=== PATIENT | male | born 1975 | race Caucasian/White ===

== ENCOUNTER 2017-02-24 11:18 | Emergency (ER) | payer MEDICAID ==
[~2017-02-24] VITALS: Ht 175.3 cm; Wt 99.8 kg
[~2017-02-24 11:18] MED LIST: METO25TA5 PO; NAP500T PO
[2017-02-24 11:35] VITALS: BP 106/72
[2017-02-24] MEDS ORDERED: PANTOPRAZOLE SODIUM 40 MG/10 ML VIAL IV STA (11:37)
[2017-02-24] MEDS ORDERED: SODIUM CHLORIDE 0.9% 1,000 ML IVB ONE (11:37)
[2017-02-24] MEDS ORDERED: MORPHINE SULFATE 4 MG/ML SYRG IV ONE (11:45)
[2017-02-24] MEDS ORDERED: ONDANSETRON HCL 4 MG/2 ML VIAL IV ONE (11:45)
[2017-02-24 12:33] LABS: Basophils # (auto) 0 uL; Basophils % (auto) 0.4 % (0.0-2.0); Eosinophils # (auto) 0.3 uL; Hematocrit 47.4 % (41.0-53.0); Hemoglobin 16.1 g/dL (13.5-17.5); Lymphocytes # (auto) 1.8 uL; Lymphocytes % (auto) 24.2 % (10.0-50.0); Mean Corpuscular Hemoglobin 30.4 pg (28.0-32.0); Mean Corpuscular Hgb Conc. 33.9 g/dL (32.0-36.0); Mean Corpuscular Volume 89.7 fL (80.0-100.0); Mean Platelet Volume 9.2 fL (7.4-10.4); Monocytes # (auto) 0.4 uL; Monocytes % (auto) 5.8 % (0.0-12.0); Neutrophils # (auto) 4.9 uL; Neutrophils % (auto) 65.6 % (37.0-80.0); Platelet Count (auto) 290 10^3/uL (140-450); Red Cell Distribution Width 13.2 % (11.6-16.0); White Blood Cell 7.5 10^3/uL (4.4-10.8)
[2017-02-24 12:48] LABS: Calcium 8.6 mg/dL (8.5-10.1); Potassium 4.4 mmol/L (3.5-5.1)
[2017-02-24 12:51] LABS: BUN/Creatinine Ratio 13.5
[2017-02-24 12:53] LABS: Bilirubin, Total 0.8 mg/dL (0.2-1.0); Total Protein 7.6 g/dL (6.4-8.2)
[2017-02-24] MEDS ORDERED: HYDROcodone-ACET 10/325MG TAB PO ONE (13:30)
== END 2017-02-24 13:25 | disposition home or self-care (01) ==
LOC: ER 11:18
DX: K29.00 Acute gastritis without bleeding (principal); I10 Essential (primary) hypertension; F17.210 Nicotine dependence, cigarettes, uncomplicated; F12.10 Cannabis abuse, uncomplicated; Z88.6 Allergy status to analgesic agent
CPT/HCPCS: 36415; 74176; 80053; 83690; 85025; 94761; 96361; 96374; 96375; 99285; C9113; J2270; J2405; J7030

== ENCOUNTER 2017-06-21 05:38 | Emergency (ER) | payer MEDICAID, OTHER ==
[~2017-06-21] VITALS: Ht 180.3 cm; Wt 95.3 kg
[2017-06-21 07:50] VITALS: BP 147/96
[2017-06-21] MEDS ORDERED: KETOROLAC TROMETH 60MG/2ML VIAL IM ONE (08:15)
== END 2017-06-21 08:38 | disposition home or self-care (01) ==
LOC: ER 05:46
DX: S83.91XA Sprain of unspecified site of right knee, initial encounter (principal); I10 Essential (primary) hypertension; F17.210 Nicotine dependence, cigarettes, uncomplicated; Z88.6 Allergy status to analgesic agent; X50.1XXA Overexertion from prolonged static or awkward postures, initial encounter; Y93.89 Activity, other specified; Y99.8 Other external cause status; Y92.69 Other specified industrial and construction area as the place of occurrence of the external cause
CPT/HCPCS: 29505; 73552; 73562; 73590; 73630; 96372; 99284; J1885

== ENCOUNTER 2017-07-30 14:10 | Emergency (ER) | payer OTHER ==
[~2017-07-30] VITALS: Ht 180.3 cm; Wt 99.8 kg
[2017-07-30 14:55] VITALS: BP 123/83
[2017-07-30] MEDS ORDERED: KETOROLAC TROMETH 60MG/2ML VIAL IM ONE (15:30)
== END 2017-07-30 16:23 | disposition home or self-care (01) ==
LOC: ER 14:10
DX: S80.01XA Contusion of right knee, initial encounter (principal); I10 Essential (primary) hypertension; F17.210 Nicotine dependence, cigarettes, uncomplicated; Z88.6 Allergy status to analgesic agent; Z79.899 Other long term (current) drug therapy; Z90.49 Acquired absence of other specified parts of digestive tract; W22.8XXA Striking against or struck by other objects, initial encounter; Y93.E1 Activity, personal bathing and showering; Y92.89 Other specified places as the place of occurrence of the external cause; Y99.8 Other external cause status
CPT/HCPCS: 73564; 96372; 99284; J1885

== ENCOUNTER 2017-09-07 12:09 | Emergency (ER) | payer OTHER ==
[~2017-09-07] VITALS: Ht 180.3 cm; Wt 99.3 kg
[2017-09-07 13:34] VITALS: BP 150/89
[2017-09-07] MEDS ORDERED: KETOROLAC TROMETH 60MG/2ML VIAL IM ONE (14:00)
== END 2017-09-07 14:52 | disposition home or self-care (01) ==
LOC: ER 12:18
DX: G89.29 Other chronic pain (principal); M54.5 Low back pain; I10 Essential (primary) hypertension; F17.210 Nicotine dependence, cigarettes, uncomplicated; Z76.0 Encounter for issue of repeat prescription
CPT/HCPCS: 96372; 99283; J1885

== ENCOUNTER 2018-04-14 10:33 | Emergency (ER) | payer SELFPAY ==
[~2018-04-14] VITALS: Ht 175.3 cm; Wt 90.7 kg
[2018-04-14 11:25] LABS: Basophils # (auto) 0.1 uL; Lymphocytes # (auto) 2.4 uL; Monocytes # (auto) 0.5 uL; Nucleated Red Blood Cells % 0.1 %
[2018-04-14 11:27] LABS: Basophils % (auto) 1.2 % (0.0-2.0); Eosinophils # (auto) 0.3 uL; Eosinophils % (auto) 3.2 % (0.0-7.0); Hematocrit 49.9 % (41.0-53.0); Hemoglobin 17.7 g/dL (13.5-17.5); Mean Corpuscular Hemoglobin 32.3 pg (28.0-32.0); Mean Corpuscular Hgb Conc. 35.4 g/dL (32.0-36.0); Mean Corpuscular Volume 91.3 fL (80.0-100.0); Monocytes % (auto) 5.1 % (0.0-12.0); Neutrophils % (auto) 64.5 % (37.0-80.0); Platelet Count (auto) 259 10^3/uL (140-450); Red Blood Cells 5.47 10^6/uL (4.5-5.90); White Blood Cell 9.3 10^3/uL (4.4-10.8)
[2018-04-14 11:33] LABS: Urine Bacteria NONE SEEN /hpf (None Seen); Urine Blood Negative /uL (Negative); Urine Mucus FEW (None Seen); Urine Specific Gravity 1.013 (1.001-1.035); Urine WBC <1 /hpf (0 - 3)
[2018-04-14 11:48] LABS: Alcohol, Urine < 3.0 mg/dL (0-5); Amphetamine Screen, Urine NEGATIVE (NEGATIVE); Barbiturate Scree,Urine NEGATIVE (NEGATIVE); Benzodiazephine Screen, Urine NEGATIVE (NEGATIVE); Cannabinoid Screen, Urine POSITIVE (NEGATIVE); Cocaine Screen, Urine NEGATIVE (NEGATIVE); Opiate Scree,Urine NEGATIVE (NEGATIVE); Phencyclidine Screen, Urine NEGATIVE (NEGATIVE)
[2018-04-14 11:51] LABS: Albumin 4.3 g/dL (3.4-5.0); BUN/Creatinine Ratio 9.8; Bilirubin, Total 0.9 mg/dL (0.2-1.0); Calcium 8.7 mg/dL (8.5-10.1); Total Protein 8.3 g/dL (6.4-8.2)
[2018-04-14] MEDS ORDERED: LORazepam 0.5 MG TAB PO ONE (12:30)
[2018-04-14 16:00] VITALS: BP 140/82
[2018-04-14] MEDS ORDERED: HYDROcodone-ACET 10/325MG TAB PO ONE (16:15)
== END 2018-04-14 16:21 | disposition home or self-care (01) ==
LOC: ER 10:33
DX: E86.0 Dehydration (principal); F41.9 Anxiety disorder, unspecified; F17.210 Nicotine dependence, cigarettes, uncomplicated; F12.10 Cannabis abuse, uncomplicated; I10 Essential (primary) hypertension; I25.2 Old myocardial infarction; Z90.89 Acquired absence of other organs; Z88.6 Allergy status to analgesic agent
CPT/HCPCS: 36415; 70450; 80053; 80307; 81001; 85025; 93005

== ENCOUNTER 2020-10-25 09:39 | Emergency (ER) | payer MEDICAID, OTHER ==
[2020-10-25] MEDS ORDERED: SODIUM CHLORIDE 0.9% 1,000 ML IV ONE (10:00)
[2020-10-25] MEDS ORDERED: IOHEXOL 350 MG/ML 100ML IJ ONE (10:01)
[2020-10-25 10:20] LABS: Hemoglobin 10.8 g/dL (13.5-17.5); Lymphocytes # (auto) 1.3 10 ^3/uL (0.4-5.4); Monocytes # (auto) 0.4 10 ^3/uL (0-1.3); Monocytes % (auto) 4.7 % (0.0-12.0); Nucleated Red Blood Cells % 0.1 %
[2020-10-25 10:22] LABS: Basophils # (auto) 0 10 ^3/uL (0-0.2); Basophils % (auto) 0.5 % (0.0-2.0); Eosinophils # (auto) 0.2 10 ^3/uL (0-0.8); Eosinophils % (auto) 2.6 % (0.0-7.0); Hematocrit 31.6 % (41.0-53.0); Lymphocytes % (auto) 15.4 % (10.0-50.0); Mean Corpuscular Hgb Conc. 34.1 g/dL (32.0-36.0); Mean Corpuscular Volume 93.8 fL (80.0-100.0); Neutrophils # (auto) 6.5 10 ^3/uL (1.6-8.6); Neutrophils % (auto) 76.8 % (37.0-80.0); Red Blood Cells 3.36 10^6/uL (4.5-5.90); Red Cell Distribution Width 14.4 % (11.8-14.3); White Blood Cell 8.5 10^3/uL (4.4-10.8)
[2020-10-25 10:39] LABS: Albumin 3.5 g/dL (3.4-5.0); Anion Gap 9 (5-15); Blood Urea Nitrogen 12 mg/dL (7-18); Calcium 8.6 mg/dL (8.5-10.1); Carbon Dioxide 24 mmol/L (21-32); Chloride 105 mmol/L (98-107); Glucose 115 mg/dL (74-106); Potassium 3.8 mmol/L (3.5-5.1); Sodium 138 mmol/L (136-145)
[2020-10-25 10:45] LABS: Alanine Aminotransferase 69 U/L (16-61); Alkaline Phosphatase 137 U/L (45-117); Aspartate Aminotransferase 75 U/L (15-37); BUN/Creatinine Ratio 16.2; Bilirubin, Total 2.1 mg/dL (0.2-1.0); GFR African American 146 mL/min; GFR Non-African American 120 mL/min; Total Protein 7.8 g/dL (6.4-8.2)
[2020-10-25] MEDS ORDERED: traMADol HCL 50 MG TAB PO ONE (11:45)
[2020-10-25 12:58] VITALS: BP 117/55
== END 2020-10-25 13:46 | disposition home or self-care (01) ==
LOC: ER 09:39
DX: R55 Syncope and collapse (principal); F17.210 Nicotine dependence, cigarettes, uncomplicated; I10 Essential (primary) hypertension; Z79.899 Other long term (current) drug therapy; Z88.5 Allergy status to narcotic agent; Z90.49 Acquired absence of other specified parts of digestive tract
CPT/HCPCS: 36415; 70450; 71275; 73502; 80053; 84484; 85025; 93005; 93970; 96360; 99285; Q9967

== ENCOUNTER 2024-02-26 06:52 | Inpatient (IN) | payer MEDICAID ==
[2024-02-24 12:49] LABS: Urine Bacteria None Seen /hpf (None Seen)
[2024-02-24 13:11] LABS: Basophils # (auto) 0.1 10 ^3/uL (0-0.2); Eosinophils # (auto) 0.3 10 ^3/uL (0-0.8); Eosinophils % (auto) 3.5 % (0.0-7.0); Hematocrit 50.3 % (41.0-53.0); Hemoglobin 17.6 g/dL (13.5-17.5); Lymphocytes # (auto) 2.1 10 ^3/uL (0.4-5.4); Lymphocytes % (auto) 25.5 % (10.0-50.0); Mean Corpuscular Hemoglobin 32.2 pg (28.0-32.0); Mean Corpuscular Hgb Conc. 34.9 g/dL (32.0-36.0); Mean Corpuscular Volume 92.1 fL (80.0-100.0); Monocytes # (auto) 0.4 10 ^3/uL (0-1.3); Monocytes % (auto) 5.2 % (0.0-12.0); Neutrophils # (auto) 5.3 10 ^3/uL (1.6-8.6); Neutrophils % (auto) 64.8 % (37.0-80.0); Nucleated Red Blood Cells % 0.2 %; Red Blood Cells 5.46 10^6/uL (4.5-5.90); White Blood Cell 8.1 10^3/uL (4.4-10.8)
[2024-02-24 13:17] LABS: INR 1.01 (0.9-1.15); Partial Thromboplastin Time 29.2 SEC (24.5-34.5); Prothrombin Time 10.7 sec (9.3-11.8)
[2024-02-24 13:29] LABS: Urine Blood Negative /uL (Negative); Urine Clarity Clear (Clear); Urine Color Yellow (Yellow); Urine Mucus FEW (None Seen); Urine Protein, UAD TRACE (Negative); Urine Specific Gravity 1.024 (1.001-1.035); Urine Urobilinogen Normal (Negative); Urine WBC 2 /hpf (0 - 3); Urine pH 5.5 (5.0-9.0)
[2024-02-24 14:02] LABS: Alanine Aminotransferase 60 U/L (7-40); Albumin 4.8 g/dL (3.2-4.8); Alkaline Phosphatase 61 U/L (46-116); Anion Gap 9 (5-15); Aspartate Aminotransferase 50 U/L (13-40); BUN/Creatinine Ratio 15.6 (10.0-20.0); Bilirubin, Total 0.8 mg/dL (0.2-1.0); Blood Urea Nitrogen 7 mg/dL (9-23); Carbon Dioxide 26 mmol/L (20-30); Chloride 105 mmol/L (98-107); Glucose 128 mg/dL (74-106); Potassium 3.6 mmol/L (3.5-5.1); Sodium 140 mmol/L (136-145); Total Protein 7.3 g/dL (5.7-8.2)
[~2024-02-26] VITALS: Ht 180.3 cm; Wt 89.5 kg
[2024-02-26] VITALS (8 sets, daily range): BP systolic 118–141; BP diastolic 82–94; PULSE 73–81; RESP 14–20; TEMP 97.8; O2SAT 95–99
[2024-02-26] MEDS: ceFAZolin 2 GM/D5W50ml 50 ML IV ONE (07:43)
[2024-02-26] MEDS ORDERED: ROCURONIUM 10MG/ML 10ML VIAL IV ONE (08:04)
[2024-02-26] MEDS ORDERED: SODIUM CHLORIDE LOCK 10 ML ONE (08:04)
[2024-02-26] MEDS ORDERED: MIDAZOLAM HCL 2MG/2ML 2ml VIAL (1mg/ml) ONE (08:04)
[2024-02-26] MEDS ORDERED: DexAMETHasone SOD PHOS 10MG/1ML VIAL INJ ONE (08:04)
[2024-02-26] MEDS ORDERED: LIDOCAINE HCL 2% TOP JELLY 5ML TOP ONE (08:04)
[2024-02-26] MEDS ORDERED: LIDOCAINE 1% INJ PF 5ML AMP ONE (08:04)
[2024-02-26] MEDS ORDERED: KETAMINE 50mg/ML 1ml syringe ONE ×2 (08:04→10:22)
[2024-02-26] MEDS ORDERED: fentaNYL CITRATE 100 MCG/2 ML VL ONE ×2 (08:04→17:47)
[2024-02-26] MEDS ORDERED: PROPOFOL 10 MG/ML 20 ML IV ONE ×2 (08:04→17:47)
[2024-02-26] MEDS ORDERED: ONDANSETRON HCL 4 MG/2 ML VIAL ONE (08:04)
[2024-02-26] MEDS ORDERED: MEPERIDINE HCL (50 MG/ML) 1 ML VIAL ONE ×2 (08:04→18:19)
[2024-02-26] MEDS: LIDOCAINE W/ EPINEPHRINE 1% 20ML VIAL ONE (09:04)
[2024-02-26] MEDS: BUPIVACAINE HCL 0 ML ONE (09:04)
[2024-02-26] MEDS: POVIDONE IODINE 10 % TOPICAL OINT 30GM TOP ONE (10:55)
[2024-02-26] MEDS: KETOROLAC TROMETH 30 MG/ML 1ML VIAL ONE (11:39)
[2024-02-26] MEDS: KETOROLAC TROMETH 30 MG/ML 1ML VIAL IV ONE (11:40)
[2024-02-26] MEDS: HYDROmorphone HCL 2 MG/ML VL/or syr ONE (11:57)
[2024-02-26] MEDS: HYDROmorphone HCL 2 MG/ML VL/or syr IV PRN (11:58)
[2024-02-26] MEDS: IPRATROPIUM BROM 0.5 MG/2.5ML INH SOL NEB ONE (12:50)
[2024-02-26] MEDS: ALBUTEROL SULF 2.5 MG/0.5ML(0.5%) NEB SOLN NEB ONE (12:51)
[2024-02-26] MEDS: D5W/SOD CHL 0.45%/KCL 20MEQ 1,000 ML IV SCH (13:45)
[2024-02-26] MEDS ORDERED: ACETAMINOPHEN 500 MG TAB PO PRN (15:00)
[2024-02-26] MEDS: MORPHINE SULFATE INJ 2 MG/ml SYRG ONE (15:18)
[2024-02-26] MEDS: MORPHINE SULFATE INJ 2 MG/ml SYRG IV PRN ×2 (15:22→22:09)
[2024-02-26 15:49] LABS: Hematocrit 42.9 % (41.0-53.0); Hemoglobin 14.8 g/dL (13.5-17.5)
[2024-02-26] MEDS: ONDANSETRON HCL 4 MG/2 ML VIAL ONE (17:12)
[2024-02-26] MEDS: ONDANSETRON HCL 4 MG/2 ML VIAL IV ONE ×2 (17:15→19:45)
[2024-02-26] MEDS: metroNIDAZOLE 500MG/100ML 100 ML IV ONE (18:35)
[2024-02-26] MEDS: cefTRIAXone 1GM/50ML D5W 50 ML IV ONE (18:36)
[2024-02-26 19:13] LABS: INR 1.03 (0.9-1.15); Partial Thromboplastin Time 27.6 SEC (24.5-34.5); Prothrombin Time 10.9 sec (9.3-11.8)
[2024-02-26] MEDS: ACETAMINOPHEN IV 100 ML IV ONE (19:40)
[2024-02-26] MEDS ORDERED: HYDROmorphone HCL 2 MG/ML VL/or syr IV PRN (19:45)
[2024-02-26] MEDS: ACETAMINOPHEN IV 1000 MG/100ML (10MG/ML) IV PRN (19:50)
[2024-02-26] MEDS: MEPERIDINE HCL (25 MG/ML) 1ML VIAL IV PRN (20:03)
[2024-02-26] MEDS: METOPROLOL TARTRATE 25 MG TAB PO SCH (22:08)
[2024-02-26] MEDS ORDERED: QUET25TA37 PO (22:57)
[2024-02-26] MEDS ORDERED: MET25T PO (22:57)
[2024-02-26] MEDS ORDERED: TRAZ-227 PO (22:57)
[2024-02-26] MEDS ORDERED: ASPI-543 PO (22:57)
[2024-02-26] MEDS ORDERED: HYDR-4798 PO (22:57)
[2024-02-27] VITALS (10 sets, daily range): BP systolic 116–160; BP diastolic 74–97; PULSE 81–112; RESP 16–20; TEMP 97.9–98.8; O2SAT 95–99
[2024-02-27 07:01] LABS: Alanine Aminotransferase 34 U/L (7-40); Albumin 3.9 g/dL (3.2-4.8); Alkaline Phosphatase 45 U/L (46-116); Anion Gap 5 (5-15); Aspartate Aminotransferase 21 U/L (13-40); Carbon Dioxide 28 mmol/L (20-30); Chloride 104 mmol/L (98-107); Glucose 95 mg/dL (74-106); Potassium 3.7 mmol/L (3.5-5.1); Sodium 137 mmol/L (136-145)
[2024-02-27 07:02] LABS: BUN/Creatinine Ratio 18.5 (10.0-20.0); Blood Urea Nitrogen < 5 mg/dL (9-23); Total Protein 5.9 g/dL (5.7-8.2)
[2024-02-27 07:18] LABS: Basophils # (auto) 0 10 ^3/uL (0-0.2); Basophils % (auto) 0.4 % (0.0-2.0); Eosinophils # (auto) 0.2 10 ^3/uL (0-0.8); Eosinophils % (auto) 2.2 % (0.0-7.0); Hematocrit 41.6 % (41.0-53.0); Hemoglobin 14.1 g/dL (13.5-17.5); Lymphocytes # (auto) 1.4 10 ^3/uL (0.4-5.4); Lymphocytes % (auto) 17.2 % (10.0-50.0); Mean Corpuscular Hemoglobin 31.6 pg (28.0-32.0); Mean Corpuscular Hgb Conc. 33.9 g/dL (32.0-36.0); Monocytes # (auto) 0.4 10 ^3/uL (0-1.3); Monocytes % (auto) 5.6 % (0.0-12.0); Neutrophils # (auto) 5.9 10 ^3/uL (1.6-8.6); Neutrophils % (auto) 74.6 % (37.0-80.0); Red Blood Cells 4.48 10^6/uL (4.5-5.90); Red Cell Distribution Width 12.9 % (11.8-14.3); White Blood Cell 7.9 10^3/uL (4.4-10.8)
[2024-02-27 08:32] LABS: Hepatitis B Surface Antigen Negative (Negative)
[2024-02-27] MEDS: cefTRIAXone 1GM/50ML D5W 50 ML IV SCH (08:58)
[2024-02-27 09:01] LABS: Hepatitis C Antibody Positive (Negative)
[2024-02-27] MEDS: FAMOTIDINE (10MG/ML) 2ML VL IV SCH (10:00)
[2024-02-27] MEDS: traMADol HCL 50 MG TAB PO PRN (13:25)
[2024-02-28] VITALS (8 sets, daily range): BP systolic 112–149; BP diastolic 74–102; PULSE 82–96; RESP 16–20; TEMP 98.2–99.1; O2SAT 93–96
[2024-02-28] MEDS: D5W/SOD CHL 0.45%/KCL 20MEQ 1,000 ML IV SCH (16:28)
[2024-02-29] VITALS (8 sets, daily range): BP systolic 96–142; BP diastolic 69–92; PULSE 71–92; RESP 16–19; TEMP 97.8–98.3; O2SAT 92–96
[2024-02-29 06:56] LABS: Hemoglobin 15.2 g/dL (13.5-17.5)
[2024-03-01] VITALS (14 sets, daily range): BP systolic 99–129; BP diastolic 60–83; PULSE 72–118; RESP 16–20; TEMP 97.3–99.1; O2SAT 93–99
[2024-03-01] MEDS: NITROGLYCERIN 0.4 MG SL TAB SL PRN (13:24)
[2024-03-01] MEDS: ALBUTEROL SULF 2.5 MG/0.5ML(0.5%) NEB SOLN NEB ONE (14:13)
[2024-03-01] MEDS: IPRATROPIUM BROM 0.5 MG/2.5ML INH SOL NEB ONE (14:14)
[2024-03-01] MEDS: FUROSEMIDE 20 MG/2 ML VIAL IV ONE (15:35)
[2024-03-01] MEDS: ALBUTEROL SULF 2.5 MG/0.5ML(0.5%) NEB SOLN NEB SCH (19:10)
[2024-03-01] MEDS: IPRATROPIUM BROM 0.5 MG/2.5ML INH SOL NEB SCH (19:10)
[2024-03-01] MEDS: traZODone HCL 50 MG TAB PO SCH (21:22)
[2024-03-02] VITALS (9 sets, daily range): BP systolic 112–146; BP diastolic 56–89; PULSE 88–101; RESP 16–20; TEMP 97.7–98.6; O2SAT 95–99
== END 2024-03-02 16:40 | disposition home health service (06) | DRG 231 ==
LOC: SUR 06:52 → TELE 15:01 → TELE-WESTW 21:00 → WEST WING 02-27 14:26
PROVIDERS: ADMIT Internal Medicine; ATTEND Internal Medicine
PROC: 0D1M0Z4 Bypass Descending Colon to Cutaneous, Open Approach (ICD-10-PCS; 2024-02-26)
PROC: 0W9G0ZZ Drainage of Peritoneal Cavity, Open Approach (ICD-10-PCS; 2024-02-26)
PROC: 0DBM0ZZ Excision of Descending Colon, Open Approach (ICD-10-PCS; 2024-02-26)
PROC: 0DBM0ZZ Excision of Descending Colon, Open Approach (ICD-10-PCS; principal; 2024-02-26 09:57)
PROC: 5A09357 Assistance with Respiratory Ventilation, Less than 24 Consecutive Hours, Continuous Positive Airway Pressure (ICD-10-PCS; 2024-02-27)
DX: R15.9 Full incontinence of feces (principal); G12.21 Amyotrophic lateral sclerosis; J96.10 Chronic respiratory failure, unspecified whether with hypoxia or hypercapnia; I10 Essential (primary) hypertension; J98.11 Atelectasis; K91.870 Postprocedural hematoma of a digestive system organ or structure following a digestive system procedure; Y92.239 Unspecified place in hospital as the place of occurrence of the external cause; Y84.8 Other medical procedures as the cause of abnormal reaction of the patient, or of later complication, without mention of misadventure at the time of the procedure
CPT/HCPCS: 36415; 71045; 76705; 80053; 81001; 85014; 85018; 85025; 85610; 85730; 86803; 86850; 86900; 86901; 87340; 94640; 94660; 97163; G0378; J0131; J1100; J1885; J2250; J2405; J2704; J3490